=== PATIENT | male | born 1955 | race Caucasian/White ===

== ENCOUNTER 2021-06-22 10:09 | Outpatient (REF) | payer MEDICARE, OTHER, SELFPAY ==
[2021-06-22 11:34] LABS: Hematocrit 44.2 % (42.0-52.0); Hemoglobin 15.6 g/dl (14.0-18.0); Mean Corpuscular HGB Conc 35.3 g/dl (31.0-36.0); Mean Corpuscular Hemoglobin 32.8 pg (27.0-33.0); Mean Corpuscular Volume 92.9 fL (80.0-98.0); Mean Platelet Volume 11.3 fL (9.4-12.4); Platelet Count 218 X10*3/uL (160-400); Red Blood Count 4.76 X10*6/uL (4.60-5.80); Red Cell Distribution Width 12.3 % (11.0-16.0); White Blood Count 5.4 X10*3/uL (4.8-10.8)
[2021-06-22 11:39] LABS: Estimated Average Glucose 128 mg/dL; Hemoglobin A1c % 6.1 %
[2021-06-22 11:49] LABS: Creatinine Urine 107.29 mg/dL; Microalbumin Urine < 5.0 mg/L
[2021-06-22 12:03] LABS: Alanine Aminotransferase 30 U/L (0-40); Albumin Level 4.6 g/dL (3.5-5.0); Alkaline Phosphatase 82 U/L (39-117); Anion Gap 12 (12-20); Aspartate Amino Transferase 17 U/L (5-37); Bilirubin Total 0.9 mg/dL (0.0-1.0); Blood Urea Nitrogen 14 mg/dL (9-16); Calcium 9.8 mg/dL (8.4-10.2); Carbon Dioxide 25 mmol/L (22-29); Chloride 107 mmol/L (96-108); Cholesterol 167 mg/dL; Estimated Glomerular Filt Rate > 60; Glucose Fasting 138 mg/dL (60-99); HDL Cholesterol 53 mg/dL; LDL Cholesterol Calculated 84 mg/dl; Sodium 140 mmol/L (135-145); Total Protein 7.6 g/dL (6.5-8.0); Triglycerides 150 mg/dL
[2021-06-22 12:08] LABS: Prostate Specific Antigen Scr 1.33 ng/mL (<0.05-4.0)
[2021-06-22 12:16] LABS: Uric Acid 5.3 mg/dL (3.4-7.0)
== END 2021-06-22 10:10 | disposition home or self-care (01) ==
LOC: HO.HMGCLDS 10:09
PROVIDERS: Visit Provider Internal Medicine
DX: Z00.00 Encounter for general adult medical examination without abnormal findings (principal); Z12.5 Encounter for screening for malignant neoplasm of prostate; M10.9 Gout, unspecified; I10 Essential (primary) hypertension
CPT/HCPCS: 36415; 80053; 80061; 82043; 83036; 84153; 84550; 85027

== ENCOUNTER 2022-06-26 12:43 | Outpatient (REF) | payer MEDICARE, OTHER, SELFPAY ==
[2022-06-26 14:16] LABS: Basophils Percent Auto 0.4 % (0-2); Eosinophils Absolute Auto 0.1 X10*3/uL (0.0-0.4); Eosinophils Percent Auto 1.5 % (0-4); Hematocrit 42.6 % (42.0-52.0); Hemoglobin 15.3 g/dl (14.0-18.0); Imm Gran Abs Auto 0.05 X10*3/uL (0.00-0.03); Imm Gran Pct Auto 0.7 % (0.0-0.4); Lymphocytes Absolute Auto 2.1 X10*3/uL (1.2-4.9); Lymphocytes Percent Auto 30.8 % (20-40); MANUAL DIFF FLAG NO; Mean Corpuscular HGB Conc 35.9 g/dl (31.0-36.0); Mean Corpuscular Hemoglobin 33.5 pg (27.0-33.0); Mean Corpuscular Volume 93.2 fL (80.0-98.0); Mean Platelet Volume 10.8 fL (9.4-12.4); Monocytes Absolute Auto 0.6 X10*3/uL (0.1-1.2); Monocytes Percent Auto 9.3 % (2-11); Neutrophils Absolute Auto 3.9 x10*3/uL (2.0-8.3); Neutrophils Percent Auto 57.3 % (45-73); Platelet Count 208 X10*3/uL (160-400); Red Blood Count 4.57 X10*6/uL (4.60-5.80); Red Cell Distribution Width 12.8 % (11.0-16.0); White Blood Count 6.8 X10*3/uL (4.8-10.8)
[2022-06-26 15:15] LABS: Alanine Aminotransferase 25 U/L (0-40); Albumin Level 4.6 g/dL (3.5-5.0); Alkaline Phosphatase 83 U/L (39-117); Anion Gap 16 (12-20); Aspartate Amino Transferase 19 U/L (5-37); Bilirubin Total 0.8 mg/dL (0.0-1.0); Blood Urea Nitrogen 15 mg/dL (9-16); Calcium 9.6 mg/dL (8.4-10.2); Carbon Dioxide 24 mmol/L (22-29); Chloride 104 mmol/L (96-108); Cholesterol 181 mg/dL; Estimated Glomerular Filt Rate > 60; Glucose Fasting 121 mg/dL (60-99); HDL Cholesterol 69 mg/dL; LDL Cholesterol Calculated 77 mg/dl; Potassium 4.2 mmol/L (3.3-5.1); Sodium 140 mmol/L (135-145); Total Protein 7.4 g/dL (6.5-8.0); Triglycerides 179 mg/dL; Uric Acid 5.8 mg/dL (3.4-7.0)
[2022-06-26 15:16] LABS: PSA,Total (Free>4and<10) 1.22 ng/mL (0.00-4.00)
[2022-06-26 15:40] LABS: Estimated Average Glucose 131 mg/dL; Hemoglobin A1c % 6.2 %
[2022-06-26 16:07] LABS: Microalbum/Creatinine Ratio Ur 4.5 ug/mg cr
== END 2022-06-26 12:44 | disposition home or self-care (01) ==
LOC: HO.HMGCLDS 12:43
PROVIDERS: PCP Internal Medicine; Visit Provider Internal Medicine
DX: Z00.00 Encounter for general adult medical examination without abnormal findings (principal); Z12.5 Encounter for screening for malignant neoplasm of prostate; I10 Essential (primary) hypertension; M10.9 Gout, unspecified
CPT/HCPCS: 36415; 80053; 80061; 82043; 83036; 84153; 84550; 85025

== ENCOUNTER 2023-07-02 07:36 | Outpatient (AMB) | payer MEDICARE, OTHER, SELFPAY ==
--- NOTE | 2023-07-02 08:05 | A.OFFPC_ITS ---
Vital Signs 07/02/23 08:07 Height 5 ft 6 in Weight 245 lb BMI 39.5 BP 120/80 Blood Pressure Location Lt brachial Position Sitting Pulse 82 Pulse Source Pulse Oximeter Pulse Oximetry (%) 96 Oxygen Delivery Method Room Air Intake Visit Reasons: PE Intake Note: Pt is here today for a PE. Allergies No Known Allergies Allergy (Verified 07/02/23 08:09) Medication List - Last Reconciled 07/02/23 by Nuzhat Sotomayor MD allopurinol 300 mg PO DAILY lisinopril 10 mg PO DAILY Tobacco use date assessed: 07/02/23 Fall risk assessment: No Falls in past year Last assessed Fall Risk: 07/02/23 Dental Screening Dental Screen Date: 07/02/23 Did you have a dental visit in the last 12 months?: Yes Did you have a dental problem in the last 6 months where you did not have access to dental care?: No Was dental information given to patient?: Patient has dentist HPI PE HPI Details Pt presents for PE PFSH Medical History (Updated 07/02/23 @ 08:53 by Nuzhat Sotomayor MD) Annual physical exam Colonoscopy refused Gout HTN (hypertension) Family History Father No problems noted. Mother No problems noted. Social History Housing: House Patient Tobacco Use Status: Never used Tobacco e-Cigarette/Vaping Use: Never Used Current occupational status: retired Cognitive needs: No Hearing needs: No Vision needs: No Questionnaire PHQ-9 Over the last 2 weeks, how often have you been bothered by any of the following problems? 1. Little interest or pleasure in doing things: not at all 2. Feeling down, depressed, or hopeless: not at all 3. Trouble falling or staying asleep, or sleeping too much: not at all 4. Feeling tired or having little energy: not at all 5. Poor appetite or overeating: not at all 6. Feeling bad about yourself - or that you are a failure or have let yourself or your family down: not at all 7. Trouble concentrating on things, such as reading the newspaper or watching television: not at all 8. Moving or speaking so slowly that other people could have noticed. Or the opposite - being so fidgety or restless that you have been moving around a lot more than usual: not at all 9. Thoughts that you would be better off or of hurting yourself in some way: not at all Total score: 0 Depression Screening Interpretation: Negative Depression Screening Done: Yes Source: Developed by Drs. Artemio Fay, Ruth Ann Moreno, Skyler Beckford and colleagues, with an educational ruthie from [employer]. Thrive Questionnaire Date Thrive assessed: 07/02/23 I am a: Patient What is your living situation today?: I have a steady place to live Within the past 12 months, did the food you bought not last and you didn't have the money to get more?: Never true Within the past 12 months, did you worry whether your food would run out before you got money to buy more?: Never true Do you have trouble paying for medicines?: No Do you have trouble getting transportation to medical appointments?: No Do you have trouble paying your heating and electricity bill?: No Do you have trouble taking care of your child, family member or friend?: No Do you have trouble with day-to-day activities such as bathing, preparing meals, shopping, managing finances, etc.?: No Are you currently unemployed and looking for a job?: No Are you interested in more education?: No Please select the resources that you would like help with: None Currently or been in a relationship where the following occur: no concerns reported THRIVE Score: 0 AUDIT C Alcohol Use Questionnaire (AUDIT-C) 1. How often do you have a drink containing alcohol?: Monthly or less 2. How many drinks containing alcohol do you have on a typical day when you are drinking?: 1 or 2 3. How often do you have six or more drinks on one occasion?: Never Total Score: 1 FABIO-7 AMB Questionnaire FABIO-7 Date FABIO - 7 assessed: 07/02/23 Feeling nervous, anxious, or on edge: 0 = Not at all Not being able to stop or control worryin = Not at all Worrying too much about different things: 0 = Not at all Trouble relaxin = Not at all Being so restless that it is hard to sit still: 0 = Not at all Becoming easily annoyed or irritable: 0 = Not at all Feeling afraid as if something awful might happen: 0 = Not at all Total FABIO-7 score (0-4 normal; 5-9 mild; 10-14 moderate; 15-21 severe): 0 Source: Developed by Drs. Artemio Fay, Ruth Ann Moreno, Skyler Beckford and colleagues, with an educational ruthie from [employer]. Review of Systems Const All systems reviewed & are unremarkable except as noted in HPI and below Reports no additional complaints Eyes Reports no additional complaints ENT Reports no additional complaints Card Reports no additional complaints Resp Reports no additional complaints GI Reports no additional complaints Reports no additional complaints Physical exam (Primary Care) Vital Signs: Last Vital Signs Pulse 82 07/02/23 08:07 BP 160/96 H 07/02/23 08:07 Pulse Ox 96 07/02/23 08:07 Oxygen Delivery Method Room Air 07/02/23 08:07 BMI result Body Mass Index 39.5 Tobacco/Smoking Status: Tobacco use Status Tobacco use date assessed 07/02/23 07/02/23 08:12 Patient Tobacco Use Status Never used Tobacco 07/02/23 08:12 e-Cigarette/Vaping Use Never Used 07/02/23 08:05 PHQ-9: PHQ-9 Score PHQ-9: Total score 0 07/02/23 08:14 Depression Screening Interpretation: Negative Thrive Assessment: Date of Thrive Assessment Date Thrive assessed 07/02/23 07/02/23 08:14 Currently or been in a relationship where the following occur: no concerns reported Const General: no acute distress HENMT Head: Yes normal to inspection Ears: hearing grossly normal bilaterally Face and sinus: Yes normal facial exam Throat: Yes posterior oropharynx normal Eyes General: appearance normal, both eyes and all related structures Neck Neck: Yes no lymphadenopathy and Yes supple Resp Effort & Inspection: normal respiratory effort Auscultation: clear to auscultation bilaterally Cardio Rhythm: regular rhythm Heart sounds: S1 normal heart sound present and S2 normal heart sound present GI Inspection: Yes normal to inspection Palpation (GI): Soft to palpation Percussion: Yes normal to percussion Auscultation: normal bowel sounds Assessment and Plan Assessment & Plan (1) Hyperglycemia: Code(s): R73.9 - Hyperglycemia, unspecified Plan: ADA DIET INCREASE EXERCISE WEIGHT LOSS DISCUSSED WITH THE PATIENT CHECK A1C TODAY (2) Colonoscopy refused: Comment: 06/25, Cologuard NEGATIVE Code(s): Z53.20 - Procedure and treatment not carried out because of patient's decision for unspecified reasons (3) HTN (hypertension): Code(s): I10 - Essential (primary) hypertension Plan: Continue lisinopril low-sodium diet increase physical activity and weight loss were recommended. Patient will follow-up in 6 months Coding Level of Care Code Est Pt Prev Care >65y(47946) Diagnoses Hyperglycemia R73.9 Colonoscopy refused Z53.20 HTN (hypertension) I10
[2023-07-02 08:07] VITALS: BP 120/80; PULSE 82; O2SAT 96; BMI 39.5
== END 2023-07-02 08:56 | disposition home or self-care (01) ==
PROVIDERS: Visit Provider Internal Medicine
DX: Z00.00 Encounter for general adult medical examination without abnormal findings (principal); R73.9 Hyperglycemia, unspecified; Z53.20 Procedure and treatment not carried out because of patient's decision for unspecified reasons; I10 Essential (primary) hypertension
CPT/HCPCS: 99397

== ENCOUNTER 2023-07-02 08:59 | Outpatient (REF) | payer MEDICARE, OTHER, SELFPAY ==
[2023-07-02 10:21] LABS: MANUAL DIFF FLAG NO
[2023-07-02 10:37] LABS: Basophils Absolute Auto 0.1 X10*3/uL (0.0-0.2); Basophils Percent Auto 0.9 % (0-2); Eosinophils Absolute Auto 0.1 X10*3/uL (0.0-0.4); Eosinophils Percent Auto 1.4 % (0-4); Hematocrit 40.8 % (42.0-52.0); Hemoglobin 14.8 g/dl (14.0-18.0); Imm Gran Abs Auto 0.04 X10*3/uL (0.00-0.03); Imm Gran Pct Auto 0.7 % (0.0-0.4); Lymphocytes Absolute Auto 1.3 X10*3/uL (1.2-4.9); Lymphocytes Percent Auto 23.5 % (20-40); Mean Corpuscular HGB Conc 36.3 g/dl (31.0-36.0); Mean Corpuscular Volume 93.8 fL (80.0-98.0); Monocytes Absolute Auto 0.6 X10*3/uL (0.1-1.2); Neutrophils Absolute Auto 3.5 x10*3/uL (2.0-8.3); Neutrophils Percent Auto 62.5 % (45-73); Platelet Count 188 X10*3/uL (160-400); Red Blood Count 4.35 X10*6/uL (4.60-5.80); Red Cell Distribution Width 12.7 % (11.0-16.0); White Blood Count 5.5 X10*3/uL (4.8-10.8)
[2023-07-02 10:41] LABS: Estimated Average Glucose 126 mg/dL
[2023-07-02 10:53] LABS: Alanine Aminotransferase 25 U/L (0-40); Albumin Level 4.3 g/dL (3.5-5.0); Alkaline Phosphatase 75 U/L (39-117); Anion Gap 15 (12-20); Aspartate Amino Transferase 17 U/L (5-37); Bilirubin Total 0.8 mg/dL (0.0-1.0); Blood Urea Nitrogen 16 mg/dL (9-16); Calcium 9.2 mg/dL (8.4-10.2); Carbon Dioxide 21 mmol/L (22-29); Chloride 108 mmol/L (96-108); Cholesterol 162 mg/dL (<200); Estimated Glomerular Filt Rate > 60; Glucose Fasting 145 mg/dL (60-99); HDL Cholesterol 67 mg/dL (>40); LDL Cholesterol Calculated 68 mg/dL (<100); Sodium 140 mmol/L (135-145); Total Protein 7.3 g/dL (6.5-8.0); Triglycerides 136 mg/dL (<150); Uric Acid 5.5 mg/dL (3.4-7.0)
[2023-07-02 11:03] LABS: PSA,Total (Free>4and<10) 1.59 ng/mL (0.00-4.00)
[2023-07-02 13:47] LABS: Appearance Urine Clear; Color Urine Yellow; Glucose Urine UA Negative (Negative); Leukocyte Esterase Urine Negative (Negative); Nitrite Urine Negative (Negative); PH 6.5 (5.0-9.0); Specific Gravity - Urine 1.025 (1.005-1.025); Urine Blood Negative (Negative); Urine Ketones Negative (Negative); Urine Protein Negative (Neg-Trace)
[2023-07-02 13:55] LABS: Bacteria Urine None Seen (None Seen); Hyaline Casts Urine 0-2 /LPF (0-2); RBC Urine 0-2 /HPF (0-2); Squamous Epithelial Cell Urine 0-2 /HPF (0-2); WBC Urine 0-5 /HPF (0-5)
[2023-07-02 14:06] LABS: Creatinine Urine 217.04 mg/dL; Microalbum/Creatinine Ratio Ur 4.1 ug/mg cr (<30)
== END 2023-07-02 09:00 | disposition home or self-care (01) ==
LOC: HO.HMGCLDS 08:59
PROVIDERS: PCP Internal Medicine; Visit Provider Internal Medicine
DX: Z00.00 Encounter for general adult medical examination without abnormal findings (principal); I10 Essential (primary) hypertension; R73.9 Hyperglycemia, unspecified; Z12.5 Encounter for screening for malignant neoplasm of prostate
CPT/HCPCS: 36415; 80053; 80061; 81001; 82043; 82570; 83036; 84153; 84550; 85025

== ENCOUNTER 2024-04-24 09:00 | Outpatient (AMB) | payer OTHER, SELFPAY ==
[2024-04-24 09:06] VITALS: BP 152/84; PULSE 99; O2SAT 96
--- NOTE | 2024-04-24 09:06 | AM.OFFWIN_ITS ---
Intake Vital Signs 04/24/24 09:06 Weight 246 lb BP 152/84 H Blood Pressure Location Rt brachial Position Sitting Pulse 99 Pulse Source Pulse Oximeter Pulse Oximetry (%) 96 Intake Visit Reasons: EP BP High 189/95 Intake Note: Patient here for elevated BP. after a change of meds. Patient Tobacco Use Status: Never used Tobacco Allergies No Known Allergies Allergy (Verified 07/02/23 08:09) Do you need a note to return to daycare/school/sports/work: No HPI HPI Comments History of Present Illness Details 68 y/o male patient who presents to the walk in clinic with c/o elevated BP readings at home. He was seen and evaluated at ED 04/22 for high Blood pressure and his Lisinopril was increased to 20 mg. Today Blood slightly elevated but stable. Denies headaches, SOB, chest pains, Dizziness or vision changes. Pt admits to poor diet and lack of exercise. He does admit to drinking Vodka daily, but reports stopped drinking Saturday. [facility] Medical History (Updated 04/24/24 @ 09:37 by Paloma Mcnulty NP) Annual physical exam Colonoscopy refused Gout HTN (hypertension) Family History Father No problems noted. Mother No problems noted. Social History Housing: House Patient Tobacco Use Status: Never used Tobacco e-Cigarette/Vaping Use: Never Used Current occupational status: retired Cognitive needs: No Hearing needs: No Vision needs: No Review of Systems Const All systems reviewed & are unremarkable except as noted in HPI and below Physical Exam Vital Signs: Last Vital Signs Pulse 99 04/24/24 09:06 BP 152/84 H 04/24/24 09:06 Pulse Ox 96 04/24/24 09:06 Const General: cooperative and no acute distress Nutritional Appearance: obese Orientation/consciousness: patient oriented x3 Resp Effort & Inspection: normal respiratory effort Auscultation: clear to auscultation bilaterally Cardio Heart sounds: S1 normal heart sound present and S2 normal heart sound present Neuro General: patient oriented x3, gait normal and moves all extremities Psych Speech and movement: Normal speech and movement present Assessment & Plan Assessment & Plan (1) HTN (hypertension): Code(s): I10 - Essential (primary) hypertension Qualifiers: Hypertension type: primary hypertension Qualified Code(s): I10 - Essential (primary) hypertension Plan: Continue on Lisinopril 20 mg for now Continue monitoring BP at home and keep a LOG He has an appointment with PCP in May. Stop drinking Vodka, weight loss and healthy eating. Avoid Foods high in Sodium. RTC if BP still elevated. Coding Level of Care Code Est Pt Level 3 (53143) Diagnoses Primary hypertension I10 Hypertension type: primary hypertension Time Spent (min) 15
== END 2024-04-24 09:47 | disposition home or self-care (01) ==
PROVIDERS: PCP Internal Medicine; Visit Provider Nurse Practitioner Family
DX: I10 Essential (primary) hypertension (principal)

== ENCOUNTER 2024-05-09 07:00 | Outpatient (REF) | payer OTHER, SELFPAY ==
[2024-05-09 11:12] LABS: MANUAL DIFF FLAG NO
[2024-05-09 11:37] LABS: Basophils Percent Auto 0.7 % (0-2); Eosinophils Absolute Auto 0.1 X10*3/uL (0.0-0.4); Eosinophils Percent Auto 1.9 % (0-4); Hematocrit 41.2 % (42.0-52.0); Hemoglobin 14.8 g/dl (14.0-18.0); Imm Gran Abs Auto 0.03 X10*3/uL (0.00-0.03); Imm Gran Pct Auto 0.5 % (0.0-0.4); Lymphocytes Percent Auto 34.2 % (20-40); Mean Corpuscular HGB Conc 35.9 g/dl (31.0-36.0); Mean Corpuscular Hemoglobin 33.5 pg (27.0-33.0); Mean Corpuscular Volume 93.2 fL (80.0-98.0); Mean Platelet Volume 11.2 fL (9.4-12.4); Monocytes Absolute Auto 0.6 X10*3/uL (0.1-1.2); Monocytes Percent Auto 9.6 % (2-11); Neutrophils Absolute Auto 3.1 x10*3/uL (2.0-8.3); Neutrophils Percent Auto 53.1 % (45-73); Platelet Count 248 X10*3/uL (160-400); Red Blood Count 4.42 X10*6/uL (4.60-5.80); White Blood Count 5.9 X10*3/uL (4.8-10.8)
[2024-05-09 11:50] LABS: Alanine Aminotransferase 42 U/L (0-40); Albumin Level 4.6 g/dL (3.5-5.0); Alkaline Phosphatase 75 U/L (39-117); Anion Gap 14 (12-20); Aspartate Amino Transferase 33 U/L (5-37); Bilirubin Total 0.6 mg/dL (0.0-1.0); Blood Urea Nitrogen 17 mg/dL (9-16); Carbon Dioxide 24 mmol/L (22-29); Chloride 106 mmol/L (96-108); Cholesterol 147 mg/dL (<200); Estimated Glomerular Filt Rate > 60; Glucose Fasting 158 mg/dL (60-99); HDL Cholesterol 47 mg/dL (>40); LDL Cholesterol Calculated 79 mg/dL (<100); Potassium 4.1 mmol/L (3.3-5.1); Sodium 140 mmol/L (135-145); Total Protein 7.9 g/dL (6.5-8.0); Triglycerides 107 mg/dL (<150)
[2024-05-09 11:53] LABS: PSA,Total (Free>4and<10) 1.68 ng/mL (0.00-4.00)
[2024-05-09 12:02] LABS: Creatinine Urine 277.35 mg/dL; Microalbum/Creatinine Ratio Ur 4.6 ug/mg cr (<30)
[2024-05-09 12:10] LABS: Estimated Average Glucose 137 mg/dL; Hemoglobin A1C 221.2254 umol/L; Hemoglobin A1c % 6.4 % (<6.0); Total Hemoglobin (HGBA1C) 4725.9618 umol/L
== END 2024-05-09 07:01 | disposition home or self-care (01) ==
LOC: HO.HMGCLDS 07:00
PROVIDERS: PCP Internal Medicine; Visit Provider Internal Medicine
DX: Z00.00 Encounter for general adult medical examination without abnormal findings (principal); R73.9 Hyperglycemia, unspecified; I10 Essential (primary) hypertension; Z12.5 Encounter for screening for malignant neoplasm of prostate
CPT/HCPCS: 36415; 80053; 80061; 82043; 82570; 83036; 84153; 85025

== ENCOUNTER 2024-05-11 08:43 | Outpatient (AMB) | payer OTHER, SELFPAY ==
--- NOTE | 2024-05-11 08:45 | MHC.PC.OV ---
Vital Signs 05/11/24 08:46 Height 5 ft 6 in Weight 243 lb BMI 39.2 BP 120/80 Blood Pressure Location Lt brachial Position Sitting Pulse 64 Pulse Source Pulse Oximeter Pulse Oximetry (%) 99 Oxygen Delivery Method Room Air Intake Visit Reasons: f/up per Intake Note: Pt is here today for a follow up visit. Allergies No Known Allergies Allergy (Verified 05/11/24 08:47) Medication List - Last Reconciled 05/11/24 by Nuzhat Sotomayor MD allopurinol 300 mg PO DAILY amlodipine 10 mg PO DAILY lisinopril 40 mg PO DAILY Tobacco use date assessed: 05/11/24 Fall risk assessment: No Falls in past year Last assessed Fall Risk: 05/11/24 Dental Screening Dental Screen Date: 05/11/24 Did you have a dental visit in the last 12 months?: Yes Did you have a dental problem in the last 6 months where you did not have access to dental care?: No Was dental information given to patient?: Patient has dentist HPI f/up per HPI Details Pt presents for HTN. Pt had an episode of high BP and headache and was evaluated in the ER. Patient has been taking 40 mg of lisinopril and added 10 mg of amlodipine 1 week ago. He has been tolerating medication well. He has been cutting down on ETOH intake and eating healthy diet. [facility] Medical History Annual physical exam Colonoscopy refused Gout HTN (hypertension) Family History Father No problems noted. Mother No problems noted. Social History Housing: House Patient Tobacco Use Status: Never used Tobacco e-Cigarette/Vaping Use: Never Used service: No Current occupational status: retired Cognitive needs: No Hearing needs: No Vision needs: No Questionnaire Thrive Questionnaire Date Thrive assessed: 07/02/23 AUDIT C Alcohol Use Questionnaire (AUDIT-C) 1. How often do you have a drink containing alcohol?: Monthly or less 2. How many drinks containing alcohol do you have on a typical day when you are drinking?: 1 or 2 3. How often do you have six or more drinks on one occasion?: Never Total Score: 1 FABIO-7 AMB Questionnaire FABIO-7 Date FABIO - 7 assessed: 07/02/23 Source: Developed by DrsRob Fay, Ruth Ann Moreno, Skyler Beckford and colleagues, with an educational ruthie from [employer]. Review of Systems Const All systems reviewed & are unremarkable except as noted in HPI and below Eyes Reports no additional complaints ENT Reports no additional complaints Card Reports no additional complaints Resp Reports no additional complaints GI Reports no additional complaints Reports no additional complaints Physical exam (Primary Care) Vital Signs: Last Vital Signs Pulse 64 05/11/24 08:46 BP 120/80 05/11/24 08:46 Pulse Ox 99 05/11/24 08:46 Oxygen Delivery Method Room Air 05/11/24 08:46 BMI result Body Mass Index 39.2 Tobacco/Smoking Status: Tobacco use Status Tobacco use date assessed 05/11/24 05/11/24 08:49 Patient Tobacco Use Status Never used Tobacco 05/11/24 08:49 e-Cigarette/Vaping Use Never Used 05/11/24 08:49 Thrive Assessment: Date of Thrive Assessment Date Thrive assessed 07/02/23 05/11/24 08:49 Const General: no acute distress HENMT Face and sinus: Yes normal facial exam Mouth: Normal oral and palatal mucosa present Neck Neck: Yes supple Resp Effort & Inspection: normal respiratory effort Auscultation: clear to auscultation bilaterally Cardio Rhythm: regular rhythm Heart sounds: S1 normal heart sound present and S2 normal heart sound present GI Inspection: Yes normal to inspection Palpation (GI): Soft to palpation Percussion: Yes normal to percussion Auscultation: normal bowel sounds Coding Level of Care Code Est Pt Level 3 (00433) Diagnoses Primary hypertension I10 Hypertension type: primary hypertension Hyperglycemia R73.9 Assessment & Plan Assessment & Plan (1) HTN (hypertension): Code(s): I10 - Essential (primary) hypertension Category: Medical Qualifiers: Hypertension type: primary hypertension Qualified Code(s): I10 - Essential (primary) hypertension Plan: Continue lisinopril 40 mg and amlodipine 10 mg. Follow-up in 1 month. (2) Hyperglycemia: Code(s): R73.9 - Hyperglycemia, unspecified Category: Medical Plan: A1c is 6.4, ADA diet increase exercise weight loss discussed with the patient Medications: New lisinopril 40 mg PO DAILY 90 tabs 1RF amlodipine 10 mg PO DAILY 90 tabs 1RF
[2024-05-11 08:46] VITALS: BP 120/80; PULSE 64; O2SAT 99; BMI 39.2
== END 2024-05-11 09:19 | disposition home or self-care (01) ==
PROVIDERS: PCP Internal Medicine; Visit Provider Internal Medicine
DX: I10 Essential (primary) hypertension (principal); R73.9 Hyperglycemia, unspecified

== ENCOUNTER 2024-06-29 09:44 | Outpatient (AMB) | payer OTHER, SELFPAY ==
[2024-06-29 09:58] VITALS: BP 128/78; PULSE 90; TEMP 36.8; O2SAT 97; BMI 37.9
--- NOTE | 2024-06-29 09:58 | MHC.PC.OV ---
Vital Signs 06/29/24 09:58 Height 5 ft 6 in Weight 235 lb BMI 37.9 BP 128/78 Blood Pressure Location Rt brachial Position Sitting Pulse 90 Pulse Source Pulse Oximeter Temp 98.2 F Temp Source Oral Pulse Oximetry (%) 97 Oxygen Delivery Method Room Air Intake Visit Reasons: 1 month f/up Intake Note: Pt is here today for 1 month follow up visit. Allergies No Known Allergies Allergy (Verified 06/29/24 10:00) Medication List - Last Reconciled 06/29/24 by Nuzhat Sotomayor MD allopurinol 300 mg PO DAILY amlodipine 10 mg PO DAILY lisinopril 40 mg PO DAILY Tobacco use date assessed: 06/29/24 Fall risk assessment: No Falls in past year Last assessed Fall Risk: 06/29/24 Dental Screening Dental Screen Date: 06/29/24 Did you have a dental visit in the last 12 months?: Yes Did you have a dental problem in the last 6 months where you did not have access to dental care?: No Was dental information given to patient?: Patient has dentist HPI 1 month f/up HPI Details Patient presents for the follow-up of hypertension controlled on current medications. [facility] Medical History Annual physical exam Colonoscopy refused Gout HTN (hypertension) Family History Father No problems noted. Mother No problems noted. Social History Housing: House Patient Tobacco Use Status: Never used Tobacco e-Cigarette/Vaping Use: Never Used service: No Current occupational status: retired Cognitive needs: No Hearing needs: No Vision needs: No Questionnaire PHQ-9 Over the last 2 weeks, how often have you been bothered by any of the following problems? 1. Little interest or pleasure in doing things: not at all 2. Feeling down, depressed, or hopeless: not at all 3. Trouble falling or staying asleep, or sleeping too much: not at all 4. Feeling tired or having little energy: not at all 5. Poor appetite or overeating: not at all 6. Feeling bad about yourself - or that you are a failure or have let yourself or your family down: not at all 7. Trouble concentrating on things, such as reading the newspaper or watching television: not at all 8. Moving or speaking so slowly that other people could have noticed. Or the opposite - being so fidgety or restless that you have been moving around a lot more than usual: not at all 9. Thoughts that you would be better off or of hurting yourself in some way: not at all Total score: 0 Depression Screening Interpretation: Negative Depression Screening Done: Yes 08490 - PHQ-9 Billing: Yes Source: Developed by Drs. Artemio Fay, Ruth Ann Moreno, Skyler Beckford and colleagues, with an educational ruthie from [employer]. Thrive Questionnaire Date Thrive assessed: 06/29/24 I am a: Patient What is your living situation today?: I have a steady place to live Within the past 12 months, did the food you bought not last and you didn't have the money to get more?: Never true Within the past 12 months, did you worry whether your food would run out before you got money to buy more?: Never true Do you have trouble paying for medicines?: No Do you have trouble getting transportation to medical appointments?: No Do you have trouble paying your heating and electricity bill?: No Do you have trouble taking care of your child, family member or friend?: No Do you have trouble with day-to-day activities such as bathing, preparing meals, shopping, managing finances, etc.?: No Are you currently unemployed and looking for a job?: No Are you interested in more education?: No Please select the resources that you would like help with: None THRIVE Score: 0 AUDIT C Alcohol Use Questionnaire (AUDIT-C) 1. How often do you have a drink containing alcohol?: Never 3. How often do you have six or more drinks on one occasion?: Never Total Score: 0 FABIO-7 AMB Questionnaire FABIO-7 Date FABIO - 7 assessed: 06/29/24 Feeling nervous, anxious, or on edge: 0 = Not at all Not being able to stop or control worryin = Not at all Worrying too much about different things: 0 = Not at all Trouble relaxin = Not at all Being so restless that it is hard to sit still: 0 = Not at all Becoming easily annoyed or irritable: 0 = Not at all Feeling afraid as if something awful might happen: 0 = Not at all Total FABIO-7 score (0-4 normal; 5-9 mild; 10-14 moderate; 15-21 severe): 0 Source: Developed by Drs. Artemio Fay, Ruth Ann Moreno, Skyler Beckford and colleagues, with an educational ruthie from [employer]. FABIO-7 Assessment Billing FABIO-7 Assessment Tool: FABIO-7 Assessment 99255 Review of Systems Const All systems reviewed & are unremarkable except as noted in HPI and below Eyes Reports no additional complaints ENT Reports no additional complaints Card Reports no additional complaints Resp Reports no additional complaints GI Reports no additional complaints Reports no additional complaints Physical exam (Primary Care) Vital Signs: Last Vital Signs Temp 98.2 F 06/29/24 09:58 Pulse 90 06/29/24 09:58 BP 128/78 06/29/24 09:58 Pulse Ox 97 06/29/24 09:58 Oxygen Delivery Method Room Air 06/29/24 09:58 BMI result Body Mass Index 37.9 Tobacco/Smoking Status: Tobacco use Status Tobacco use date assessed 06/29/24 06/29/24 10:09 Patient Tobacco Use Status Never used Tobacco 06/29/24 10:09 e-Cigarette/Vaping Use Never Used 06/29/24 10:09 PHQ-9: PHQ-9 Score PHQ-9: Total score 0 06/29/24 10:09 Depression Screening Interpretation: Negative Thrive Assessment: Date of Thrive Assessment Date Thrive assessed 06/29/24 06/29/24 10:09 Const General: no acute distress HENMT Head: Yes normal to inspection Throat: Yes posterior oropharynx normal Neck Neck: Yes supple Resp Effort & Inspection: normal respiratory effort Auscultation: clear to auscultation bilaterally Cardio Rhythm: regular rhythm Heart sounds: S1 normal heart sound present and S2 normal heart sound present GI Inspection: Yes normal to inspection Palpation (GI): Soft to palpation Percussion: Yes normal to percussion Auscultation: normal bowel sounds Coding Level of Care Code Est Pt Level 3 (64099) Diagnoses Primary hypertension I10 Hypertension type: primary hypertension Hyperglycemia R73.9 Additional Codes FABOI-7 Assessment Billing - FABIO-7 Assessment Tool: FABIO-7 Assessment 49754 ([id number]) PHQ-9 - 56935 - PHQ-9 Billing: Yes ([id number]) Assessment & Plan Assessment & Plan (1) HTN (hypertension): Code(s): I10 - Essential (primary) hypertension Category: Medical Qualifiers: Hypertension type: primary hypertension Qualified Code(s): I10 - Essential (primary) hypertension Plan: Continue current medications (2) Hyperglycemia: Code(s): R73.9 - Hyperglycemia, unspecified Category: Medical Plan: A1c was 6.4, ADA diet increase exercise weight loss discussed with the patient return in 6 months with a fasting labs before Orders: Orders Comprehensive [facility]. Panel Fast 6 Months I10 - Essential (primary) hypertension, R73.9 - Hyperglycemia, unspecified, Z00.00 - Encounter for general adult medical examination without abnormal findings Lipid Panel 6 Months I10 - Essential (primary) hypertension, R73.9 - Hyperglycemia, unspecified, Z00.00 - Encounter for general adult medical examination without abnormal findings Complete Blood Count Auto Diff 6 Months I10 - Essential (primary) hypertension, R73.9 - Hyperglycemia, unspecified, Z00.00 - Encounter for general adult medical examination without abnormal findings Hemoglobin A1c 6 Months I10 - Essential (primary) hypertension, R73.9 - Hyperglycemia, unspecified, Z00.00 - Encounter for general adult medical examination without abnormal findings Microalbumin, Random (w Creat) 6 Months I10 - Essential (primary) hypertension, R73.9 - Hyperglycemia, unspecified, Z00.00 - Encounter for general adult medical examination without abnormal findings Medications: Refilled amlodipine 10 mg PO DAILY 90 tabs 3RF lisinopril 40 mg PO DAILY 90 tabs 3RF
--- OUTSIDE RECORDS SUMMARY | 2024-06-29 14:09 | XMS_ITS ---
Author Name [facility] Organization Unknown History of Medication Use Medication Directions Dispensed Refills Start Date End Date Stat lisinopril 20 mg tablet TAKE 1 TABLET BY MOUTH DAILY active lisinopril 40 mg tablet TAKE 1 TABLET BY MOUTH DAILY active triamcinolone acetonide 40 mg/mL suspension for injection Take 40 mg by injection route. 06/24/2024 active lisinopril 10 mg tablet TAKE 1 TABLET BY MOUTH DAILY active lidocaine (PF) 100 mg/5 mL (2 %) injection syringe Take 4 mL by injection route. 06/24/2024 active allopurinol 300 mg tablet TAKE 1 TABLET BY MOUTH DAILY active amlodipine 10 mg tablet TAKE 1 TABLET BY MOUTH DAILY active Problems Problem Status Onset Date Problem Type Date of Resoluti on Source Osteoarthritis of left hip joint active 2024-06-24 ProblemAct [facility]
== END 2024-06-29 11:01 | disposition home or self-care (01) ==
PROVIDERS: PCP Internal Medicine; Visit Provider Internal Medicine
DX: I10 Essential (primary) hypertension (principal); R73.9 Hyperglycemia, unspecified

== ENCOUNTER → 2024-06-29 09:44 | Outpatient (BNVA) | payer OTHER, SELFPAY | PROVIDERS: PCP Internal Medicine; Visit Provider Internal Medicine | DX: I10 Essential (primary) hypertension (principal); R73.9 Hyperglycemia, unspecified | CPT/HCPCS: 96127 ==

== ENCOUNTER 2024-12-29 08:31 | Outpatient (AMB) | payer OTHER, SELFPAY ==
--- NOTE | 2024-12-29 08:42 | MHC.PC.OV ---
Vital Signs 12/29/24 08:51 Height 5 ft 6 in Weight 236 lb BMI 38.1 BP 126/80 Blood Pressure Location Rt brachial Position Sitting Respiration 20 Pulse 83 Pulse Source Pulse Oximeter Temp 98.3 F Temp Source Oral Pulse Oximetry (%) 97 Oxygen Delivery Method Room Air Intake Visit Reasons: 6m follow up Intake Note: Pt is here today for 6 month follow up visit. Allergies No Known Allergies Allergy (Verified 12/29/24 08:54) Medication List - Last Reconciled 12/29/24 by Nuzhat Sotomayor MD allopurinol 300 mg PO DAILY amlodipine 10 mg PO DAILY lisinopril 40 mg PO DAILY Tobacco use date assessed: 12/29/24 Fall risk assessment: No Falls in past year Last assessed Fall Risk: 12/29/24 Dental Screening Dental Screen Date: 12/29/24 Did you have a dental visit in the last 12 months?: Yes Did you have a dental problem in the last 6 months where you did not have access to dental care?: No Was dental information given to patient?: Patient has dentist HPI 6m follow up HPI Details Pt presents for f/u HTN controlled on medication and diet controlled hyperglycemia. He lost 10 lb since the last visit and has been exercising and eating well-balanced diet. [facility] Medical History Annual physical exam Colonoscopy refused Gout HTN (hypertension) Family History Father No problems noted. Mother No problems noted. Social History Housing: House Patient Tobacco Use Status: Never used Tobacco e-Cigarette/Vaping Use: Never Used service: No Current occupational status: retired Cognitive needs: No Hearing needs: No Vision needs: No Questionnaire Thrive Questionnaire Date Thrive assessed: 06/29/24 FABIO-7 AMB Questionnaire FABIO-7 Date FABIO - 7 assessed: 06/29/24 Source: Developed by Drs. Artemio aFy, Ruth Ann Moreno, Skyler Beckford and colleagues, with an educational ruthie from [employer] Review of Systems Const All systems reviewed & are unremarkable except as noted in HPI and below Eyes Reports no additional complaints ENT Reports no additional complaints Card Reports no additional complaints Resp Reports no additional complaints GI Reports no additional complaints Reports no additional complaints Physical exam (Primary Care) Vital Signs: Last Vital Signs Temp 98.3 F 12/29/24 08:51 Pulse 83 12/29/24 08:51 Resp 20 12/29/24 08:51 BP 126/80 12/29/24 08:51 Pulse Ox 97 12/29/24 08:51 Oxygen Delivery Method Room Air 12/29/24 08:51 BMI result Body Mass Index 38.1 Tobacco/Smoking Status: Tobacco use Status Tobacco use date assessed 12/29/24 12/29/24 09:01 Patient Tobacco Use Status Never used Tobacco 12/29/24 09:01 e-Cigarette/Vaping Use Never Used 12/29/24 08:42 Thrive Assessment: Date of Thrive Assessment Date Thrive assessed 06/29/24 12/29/24 08:42 Const General: no acute distress HENMT Head: Yes normal to inspection Ears: hearing grossly normal bilaterally General nose exam: Normal external nose present Face and sinus: Yes normal facial exam Mouth: Normal oral and palatal mucosa present Throat: Yes posterior oropharynx normal Eyes General: appearance normal, both eyes and all related structures Neck Neck: Yes no lymphadenopathy and Yes supple Resp Effort & Inspection: normal respiratory effort Auscultation: clear to auscultation bilaterally Cardio Rhythm: regular rhythm Heart sounds: S1 normal heart sound present and S2 normal heart sound present GI Inspection: Yes normal to inspection Palpation (GI): Soft to palpation Percussion: Yes normal to percussion Auscultation: normal bowel sounds Results AMB Hemoglobin A1c AMB Hemoglobin A1c 6.2 % Last Edit by AARON Bruner on 12/29/24 09:34 Immunizations pneumoc 20-tootie conj-dip cr(PF) 0.5 mL IM syringe Performing Provider: Nuzhat Sotomayor MD [place] [facility] [place] [facility] Administered by: AARON Bruner on 12/29/24 09:47 Dose Route Admin Location Dispensed Lot Number Expiration Date [facility] Stitcher Utility 0.5 mL IM Right Deltoid 0.5 mL [id number] 12/31/25 7778-0643-82 [employer] Total Dispensed Waste 0.5 mL 0 % VIS Given Date VIS Provided VIS Publication Date 12/29/24 Single Vaccine 24 Eligibility Eligibility Date Funding Source Not [facility] Eligible 12/29/24 Private Results Reviewed Results Reviewed: Laboratory Last Values Hgb A1c (Clinic) 6.2 % (4.0-6.0) H 12/29/24 09:33 Coding Level of Care Code Est Pt Level 4 (12854) Diagnoses Hyperglycemia R73.9 Primary hypertension I10 Hypertension type: primary hypertension Assessment & Plan Assessment & Plan (1) Hyperglycemia: Code(s): R73.9 - Hyperglycemia, unspecified Category: Medical Plan: A1c is 6.2, ADA diet increase exercise weight loss discussed with the patient follow-up in 6 months with a fasting labs before (2) HTN (hypertension): Code(s): I10 - Essential (primary) hypertension Category: Medical Qualifiers: Hypertension type: primary hypertension Qualified Code(s): I10 - Essential (primary) hypertension Plan: Continue current medications and follow-up in 6 months Orders: Orders Complete Blood Count Auto Diff 6 Months I10 - Essential (primary) hypertension, M10.9 - Gout, unspecified, R73.9 - Hyperglycemia, unspecified Hemoglobin A1c 6 Months I10 - Essential (primary) hypertension, M10.9 - Gout, unspecified, R73.9 - Hyperglycemia, unspecified Lipid Panel 6 Months I10 - Essential (primary) hypertension, M10.9 - Gout, unspecified, R73.9 - Hyperglycemia, unspecified PSA,Total (Free>4and<10) 6 Months I10 - Essential (primary) hypertension, M10.9 - Gout, unspecified, R73.9 - Hyperglycemia, unspecified UA w Microscopic 6 Months I10 - Essential (primary) hypertension, M10.9 - Gout, unspecified, R73.9 - Hyperglycemia, unspecified AMB Hemoglobin A1c Today Z13.9 - Encounter for screening, unspecified Comprehensive [place]. Panel Fast 6 Months I10 - Essential (primary) hypertension, M10.9 - Gout, unspecified, R73.9 - Hyperglycemia, unspecified Microalbumin, Random (w Creat) 6 Months I10 - Essential (primary) hypertension, M10.9 - Gout, unspecified, R73.9 - Hyperglycemia, unspecified Pneumococcal 20 Immunization Today Z23 - Encounter for immunization Medications: Refilled lisinopril 40 mg PO DAILY 90 tabs 3RF amlodipine 10 mg PO DAILY 90 tabs 3RF allopurinol 300 mg PO DAILY 90 tabs 3RF
--- OUTSIDE RECORDS SUMMARY | 2024-12-29 08:46 | XMS_ITS ---
Author Name [facility] Organization Unknown History of Medication Use Medication Directions Dispensed Refills Start Date End Date Stat lidocaine (PF) 100 mg/5 mL (2 %) injection syringe Take 4 mL by injection route. 06/24/2024 active triamcinolone acetonide 40 mg/mL suspension for injection Take 40 mg by injection route. 06/24/2024 active allopurinol 300 mg tablet TAKE 1 TABLET BY MOUTH DAILY active amlodipine 10 mg tablet TAKE 1 TABLET BY MOUTH DAILY active lisinopril 10 mg tablet TAKE 1 TABLET BY MOUTH DAILY active lisinopril 20 mg tablet TAKE 1 TABLET BY MOUTH DAILY active lisinopril 40 mg tablet TAKE 1 TABLET BY MOUTH DAILY active Problems Problem Status Onset Date Problem Type Date of Resoluti on Source Osteoarthritis of left hip joint active 2024-06-24 ProblemAct [facility]ON[facility] Encounters Encounter Type Encounter Reason Primary Diagnosis Location Date Ambulatory [facility] [place] 06/25/2024 Ambulatory [facility] [place] 06/24/2024 Ambulatory [facility] [place] 06/24/2024 Ambulatory [facility] [place] 06[facility]24/2024 Ambulatory [facility] [place] 06/24/2024 Ambulatory [facility] [place] 06/24/2024 Ambulatory [facility] [place] 06/24/2024 Ambulatory [facility] [place] 06/23/2024
[2024-12-29 08:51] VITALS: BP 126/80; PULSE 83; RESP 20; TEMP 36.8; O2SAT 97; BMI 38.1
== END 2024-12-29 09:40 | disposition home or self-care (01) ==
LOC: HO.HMCC 08:31
PROVIDERS: PCP Internal Medicine; Visit Provider Internal Medicine
DX: R73.9 Hyperglycemia, unspecified (principal); I10 Essential (primary) hypertension; Z23 Encounter for immunization; Z13.9 Encounter for screening, unspecified

== ENCOUNTER → 2024-12-29 08:31 | Outpatient (BNVA) | payer OTHER, SELFPAY | PROVIDERS: PCP Internal Medicine; Visit Provider Internal Medicine | DX: R73.9 Hyperglycemia, unspecified (principal); I10 Essential (primary) hypertension; Z23 Encounter for immunization | CPT/HCPCS: 83036; 90471; 90677 ==